=== PATIENT | female | born 1990 | race Asian ===

== ENCOUNTER 2024-05-25 05:01 | Inpatient (IN) ==
[2024-05-25] MEDS: Ondansetron 4 mg VIAL 2 MG/ML 2 ml VIAL IV PRN (05:51)
[2024-05-25] MEDS: Lactated Ringers 1000 ml BAG 1,000 ML IV ONE (06:00)
[2024-05-25 06:16] LABS: ABS Basophils 0.1 10^3/uL (0.0-0.1); ABS Eosinophils 0.1 10^3/uL (0.0-0.5); ABS Monocytes 0.6 10^3/uL (0.0-0.9); ABS Neutrophils 5.4 10^3/uL (1.5-7.6); ABS Nucleated RBC 0.02 10^3/ul; Eosinophil % 1.7 %; Hematocrit 32.3 % (35-45); Hemoglobin 11.1 g/dL (11.5-14.3); Lymphocyte % 24.2 %; Mean Corpuscular Hemoglobin 31.3 pg (27-33); Mean Corpuscular Hgb Conc 34.3 g/dL (31-36); Mean Corpuscular Volume 91.4 fL (80-97); Mean Platelet Volume 8.3 fL (7.5-11.2); Nucleated Red Blood Cells % 0.2 %/100WBC (0.0-0.8); Platelet Count 207 10^3/uL (150-450); Red Blood Count 3.53 10^6/uL (3.63-4.92); Red Cell Distribution Width 15.6 % (12-17); White Blood Count 8.3 10^3/uL (3.8-11.8)
[2024-05-25] MEDS: Lactated Ringers 1000 ml BAG 1,000 ML IV SCH (07:00)
[2024-05-25] MEDS: Sodium Citrate/Citric Acid LIQ 15 ML UDC PO ONE ×2 (08:04→13:47)
[2024-05-25] MEDS: ceFOXitin 2 GM IVPREMIX 2 GM/50 ML BAG IVPB ONE (08:04)
[2024-05-25] MEDS ORDERED: Morphine PF AMP (0.5MG/ML) 5 MG/10 ML AMP ONE (08:25)
[2024-05-25] MEDS ORDERED: Oxytocin 10 UNITS/ML 1 ML VIAL ONE (08:26)
[2024-05-25] MEDS ORDERED: Ondansetron 4 mg VIAL 2 MG/ML 2 ml VIAL ONE (08:26)
[2024-05-25] MEDS ORDERED: Phenylephrine 40 mcg/mL 10mL (400mcg) SYRINGE ONE (08:41)
[2024-05-25] MEDS ORDERED: Dexamethasone IV 4 MG/ML VIAL 1 ml VIAL ONE (08:51)
[2024-05-25] MEDS ORDERED: Metoclopramide 5 MG/ML VIAL (10 mg) ONE (08:55)
[2024-05-25] MEDS ORDERED: Acetaminophen IV 1 GM/100ML 1,000 MG/100 ML BAG IV ONE (09:17)
[2024-05-25] MEDS ORDERED: Acetaminophen IV 1 GM/100ML 1,000 MG/100 ML BAG IV PRN (09:31)
[2024-05-25] MEDS ORDERED: Ondansetron 4 mg VIAL 2 MG/ML 2 ml VIAL IV PRN (09:31)
[2024-05-25] MEDS ORDERED: Metoclopramide 5 MG/ML VIAL (10 mg) IV PRN (09:31)
[2024-05-25] MEDS ORDERED: Naloxone 0.4 mg VIAL 0.4 mg/ml 1 ml VIAL IV PUSH PRN (09:31)
[2024-05-25 09:40] LABS: Urine Appearance Clear; Urine Bilirubin Negative (Negative); Urine Blood Negative (Negative); Urine Color Colorless; Urine Glucose Negative (Negative); Urine Ketones Negative (Negative); Urine Nitrite Negative (Negative); Urine Protein Negative (Negative); Urine Specific Gravity 1.004 (1.002-1.030); Urine Urobilinogen Negative (Negative); Urine pH 6.5 (5.0-8.0)
[2024-05-25 09:51] LABS: Urine Benzodiazepine Screen None Detected (None Detect); Urine Cannabinoids Screen None Detected (None Detect); Urine Opiates Screen None Detected (None Detect)
[2024-05-25] MEDS: Buffered Lidocaine 1% SYRIN 1 ml INTRADERM ONE (13:47)
[2024-05-25] MEDS ORDERED: Oxytocin in LR 20,000 MILLI.UNIT/1,000 ML BAG IV ONE (14:00)
[2024-05-25] MEDS: Oxytocin in LR 20,000 MILLI.UNIT/1,000 ML BAG IV SCH (14:56)
[2024-05-25] MEDS ORDERED: Glycerin ADULT 2.4 gm SUPP PR PRN (16:31)
[2024-05-25] MEDS ORDERED: Witch Hazel PAD JAR TOPICAL PRN (16:31)
[2024-05-25] MEDS ORDERED: Dibucaine 1% OINT 28.35 GM TUBE PR PRN (16:31)
[2024-05-25] MEDS ORDERED: Lactated Ringers 1000 ml BAG 1,000 ML IV SCH (17:00)
[2024-05-26 07:23] LABS: ABS Basophils 0.1 10^3/uL (0.0-0.1); ABS Eosinophils 0.1 10^3/uL (0.0-0.5); ABS Lymphocytes 2.3 10^3/uL (1.0-4.8); ABS Monocytes 0.9 10^3/uL (0.0-0.9); ABS Neutrophils 8.8 10^3/uL (1.5-7.6); ABS Nucleated RBC 0.01 10^3/ul; Eosinophil % 0.9 %; Hematocrit 25.7 % (35-45); Hemoglobin 8.8 g/dL (11.5-14.3); Lymphocyte % 18.5 %; Mean Corpuscular Hgb Conc 34.1 g/dL (31-36); Nucleated Red Blood Cells % 0.1 %/100WBC (0.0-0.8); Platelet Count 162 10^3/uL (150-450); Red Blood Count 2.82 10^6/uL (3.63-4.92); Red Cell Distribution Width 15.4 % (12-17); White Blood Count 12.2 10^3/uL (3.8-11.8)
[2024-05-28 09:12] VITALS: BP 103/68
[2024-05-28] MEDS: Varicella Virus Vaccine Live 0.5 ML VIAL SUBCUT ONE (12:38)
[2024-05-28] MEDS: Measles, Mumps,Rubella VACC 0.5 ML/VIAL SUBCUT ONE (12:41)
== END 2024-05-28 13:35 | disposition home or self-care (01) | DRG 540 ==
LOC: MCHOB 05:01
PROVIDERS: ADMIT Obstetrics & Gynecology; ATTEND Obstetrics & Gynecology